=== PATIENT | female | born 1970 | race Caucasian/White ===

== ENCOUNTER 2016-11-06 17:07 | Emergency (ER) | payer OTHER ==
[2016-11-06 17:24] VITALS: BP 120/73; PULSE 86; RESP 15; TEMP 98.2; O2SAT 94
[2016-11-06] MEDS ORDERED: MAGNESIUM CITRATE 300 ML BOTTLE PO ONE (18:52)
--- NOTE | 2016-11-06 18:57 | UCPHY ---
H & P Time Seen by Provider: 11/06/16 17:16 Patient Type: New HPI/ROS: 46-year-old female presents complaining of constipation x7 days, she has tried laxatives eating more salads, increasing her fluids. She denies abdominal pain she denies fevers chills nausea vomiting. Review of systems As per HPI General no fever no chills no weakness HEENT no eye pain no eye discharge. No eye redness, no sore throat Respiratory no cough, no shortness of breath Cardiac no chest pain, no peripheral edema GI no abdominal pain, no diarrhea, positive constipation, no nausea, no vomiting no flank pain, no hematuria, no dysuria Musculoskeletal no myalgias, no joint pain Heme no easy bruising, no easy bleeding Endo no polyuria, no polydipsia Skin no rashes, no pruritus Neuro no syncope, no dizziness, no headaches Psych is no suicidal ideation, no homicidal ideation Past Medical/Surgical History: [id number] diabetes, breast cancer Social History: Denies alcohol or drug use Moving to [facility] next month Smoking Status: Never smoked Physical Exam: 46-year-old female alert and oriented no acute distress nontoxic appearance afebrile HEENT atraumatic normocephalic, extraocular muscles intact, anicteric Oropharynx negative for erythema negative exudate, tolerating her own secretions Neck supple no meningismus Lungs clear to auscultation bilaterally Heart regular rate and rhythm without murmur rub or gallop Abdomen nondistended normoactive bowel sounds soft nontender, no guarding no rebound Rectal exam no masses in rectal vault no palpable stool no bleeding Back no CVA tenderness, no step-offs, no spinal tenderness Extremities no cyanosis clubbing or edema Neuro alert and oriented, no focal deficits Constitutional: Initial Vital Signs Temperature (C) 36.8 C 11/06/16 17:21 Heart Rate 86 11/06/16 17:21 Respiratory Rate 15 11/06/16 17:21 Blood Pressure 120/73 11/06/16 17:21 O2 Sat (%) 94 11/06/16 17:21 O2 Delivery Mode Room Air Allergies/Adverse Reactions: No Known Allergies Allergy (Unverified 11/06/16 17:20) Home Medications: Medication Instructions Recorded Metformin HCl 11/06/16 Tamoxifen Citrate 11/06/16 Medical Decision Making - Diagnostics Imaging: X-ray no signs of obstruction, moderate amount of stool burden ED Course/Re-evaluation: Patient seen and evaluated for constipation Differential diagnosis considered Diarrhea, constipation, bowel obstruction X-rays negative for obstruction Patient was also concerned that she might be impacted Rectal exam negative for impaction Impression Constipation Plan Magnesium citrate Follow up with PCP - Data Points Medications Given: Discontinued Medications Magnesium Citrate (Magnesium Citrate) 300 ml PO ONCE ONE Stop: 11/06/16 18:53 Last Admin: 11/06/16 18:59 Dose: 1 btl Departure - Departure Disposition: Home, Routine, Self-Care Clinical Impression: Constipation Condition: Good Instructions: Magnesium Citrate (By mouth), Constipation (ED) Referrals: Haydee Hein MD [Primary Care Provider] - As per Instructions - PQRS PQRS Measurement: na
== END 2016-11-06 19:23 | disposition home or self-care (01) ==
LOC: CED 17:07
DX: K59.00 Constipation, unspecified (principal); E11.9 Type 2 diabetes mellitus without complications
CPT/HCPCS: 74020-PO; 99203-PO; G0463-PO